=== PATIENT | male | born 1980 | race African-American/Black ===

== ENCOUNTER 2020-08-18 11:02 | Emergency (ER) | payer OTHER ==
[~2020-08-18] VITALS: Ht 177.8 cm; Wt 99.8 kg
[2020-08-18 11:04] VITALS: BP 159/131
--- NOTE | 2020-08-18 11:07 | NUR ---
Pt taken to ER bed 11.
--- NOTE | 2020-08-18 11:11 | NUR ---
40 Y/O MALE HOMELESS BIBA C/O L ANKLE PAIN & SWELLING S/P FALL X 2 DAYS AGO. SEEN BY [facility] & WAS TOLD LEFT ANKLE FRACTURE. PT ABLE TO MOVE FOOT NO PAIN AT THIS TIME. DENIES PMH ALLERGIES TO S[facility]FA
--- NOTE | 2020-08-18 11:26 | NUR ---
ultrasound technologist sonographer at pt bedside.
--- NOTE | 2020-08-18 11:37 | NUR ---
US at pt bedside.
[2020-08-18] MEDS ORDERED: CEPH250C16 PO (12:22)
[2020-08-18 12:51] VITALS: BP 159/131
--- NOTE | 2020-08-18 12:51 | NUR ---
Patient given written and verbal discharge instructions and verbalizes understanding. Patient is awake, alert and oriented. Ambulatory with steady gait. Given list of available shelters in surrounding areas. Ambulatory with use of crutches & steady gait. All questions addressed prior to discharge. Advised to follow up with PMD.
== END 2020-08-18 12:51 | disposition home or self-care (01) ==
LOC: MED 11:02
DX: L03.116 Cellulitis of left lower limb (principal); Z79.899 Other long term (current) drug therapy
CPT/HCPCS: 73610; 93971; 99284